=== PATIENT | female | born 2000 | race Caucasian/White ===

== ENCOUNTER 2022-01-13 19:16 | Emergency (ER) | payer OTHER ==
[~2022-01-13] VITALS: Ht 162.6 cm; Wt 56.2 kg
[2022-01-13 19:28] VITALS: BP 136/85
--- NOTE | 2022-01-13 20:07 | NUR ---
PT AMBULATED TO CHAIR A, PT C/O RIGHT 2 ND TOE PAIN AFTER HITTING IT ON THE FLOOR AT WORK, SLIGHT SWELLING NOTED, +PMSC.
[2022-01-13] MEDS ORDERED: NAPR-1704 PO (20:50)
[2022-01-13 21:56] VITALS: BP 134/70
== END 2022-01-13 21:50 | disposition home or self-care (01) ==
LOC: MED 19:16
DX: M79.674 Pain in right toe(s) (principal)
CPT/HCPCS: 73630; 81025; 99283